=== PATIENT | female | born 1945 | race Caucasian/White ===

== ENCOUNTER → 2024-02-02 15:24 | Outpatient (REF) | payer MEDICARE, SELFPAY | LOC: HWWDC 15:24 | PROVIDERS: ATTENDING PHYSICIAN Nurse Practitioner Family | DX: Z12.31 Encounter for screening mammogram for malignant neoplasm of breast (principal) | CPT/HCPCS: 77063; 77067 ==

== ENCOUNTER 2025-01-23 22:47 | Inpatient (IN) | payer MEDICARE, SELFPAY ==
[2025-01-23 16:40] VITALS: BP 130/71
[2025-01-23 17:09] LABS: Hematocrit 40.0 % (37.0-47.0); Hemoglobin 13.5 g/dL (12.0-16.0); Mean Corp Hgb Conc. 33.8 g/dL (33.0-37.0); Mean Corpuscular Volume 94.3 fL (81.0-99.0); Nucleated Red Blood Cells % 0 %; Platelet Count 293 10^3/uL (130-400); Red Cell Dist. Width 12.3 % (11.5-14.5)
[2025-01-23 17:32] LABS: ALT (SGPT) 16 U/L (0-35); AST (SGOT) 23 U/L (14-36); Albumin 4.8 g/dl (3.5-5.0); Alkaline Phosphatase 50 U/L (38-126); Blood Urea Nitrogen 61 mg/dl (7-17); Calcium 11.4 mg/dl (8.4-10.2); Carbon Dioxide 30 mmol/L (22-30); Chloride 93 mmol/L (98-107); Glucose 189 mg/dl (70-99); Lipase 128 U/L (23-300); Potassium 4.8 mmol/L (3.5-5.1); Sodium 133 mmol/L (135-145); Total Protein 7.7 g/dl (6.3-8.2); eGFR 17.51
--- NOTE | 2025-01-23 19:17 | ED.GENMED ---
History of Present Illness
General
Chief Complaint: Abdominal Pain
Source: patient
Time Seen by Provider: 01/23/25 18:57
History of Present Illness
History of Present Illness:
79-year-old female presents emergency room complaining of abdominal pain. Pain located right lower quadrant today. Patient noted she was having some right-sided back discomfort yesterday. She has some nausea but no vomiting or diarrhea. She is
feeling dizzy when she stands up as well. No fever or chills. Pain actually has improved while waiting in the waiting room. She really does not have pain at the time my evaluation. She is tolerating oral intake. Previous abdominal surgery
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
Past History
Past History
ED Past Medical History: Asthma, GERD, HTN, Hypothyroidism and Other (Crohn's, arthritis)
ED Past Surgical History: None
Social History
Tobacco: Former smoker
Alcohol: None
Personal:
Living: with family
Employment: Retired
Family History
Family History: Other (Unremarkable)
Phy Exam
Physical Exam
Physical Exam:
General: Awake, Alert, Oriented X3. No acute distress.
Vitals: unremarkable
Head: Atraumatic
Eyes: Pupils equal, EOMI
Throat: Airway intact, no exudates
Neck: Trachea midline
Lungs: Clear and equal b/l
Heart: Regular rate, no murmurs
Abd: Soft, no significant tenderness to palpation, colostomy noted, No pulsatile mass
Back: Mild tenderness palpation bilateral CVA
Neuro: Nonfocal
Skin: Warm, dry, no rash
Extremities: pulses equal b/l, no edema
Course
Orders/Labs/Results
Orders:
Orders
01/23/25 17:04
Complete Blood Count/With Diff Urgent
Comprehensive Metabolic Panel Urgent
Lipase Urgent
01/23/25 19:16
CT Abd/pel Without Iv Or Oral Urgent
Comment:
Reason For Exam: r flank/abd pain, abn renal fx
0.9% Sodium Chloride 1000 ml [Nss] 1,000 ml IV BOLUS
01/23/25 19:19
Urinalysis Reflex To Culture Urgent
Date Specimen was Collected: 01/23/25
Time Specimen was Collected: 16:44
Urine Microscopic Reflex Cult Urgent
Urine Culture Urgent
ROMAIN Source: U
Specimen Description:
Date Specimen was Collected: 01/23/25
Time Specimen was Collected: 16:44
01/23/25 22:00
0.9% Sodium Chloride 1000 ml [Nss] 1,000 ml IV 150 mls/hr
01/23/25 22:28
Admit/Transfer Patient As Directed
Co-Sign Provider:
Level of Care: Inpatient admission
Assign to:: Medical/Surgical
Physician / Group: Jay
Diagnosis: PUMA
Reason for Hospitalization: PUMA
Expected length of stay greater than two midnights?: Yes
ELOS- Estimated Length of Stay in days: 2
I certify the patient meets the requirements for IP care: Yes
PRN Pain Medication Management As Directed
May give lesser potent ordered pain med per pt: Yes
preference::
Protocol:: Medication orders for pain may be administered in a
manner that supports deferring to patient preference
when the pt is:
- Requesting an ordered lesser potent pain medication.
Least to most potent pain medications are defined
as: acetaminophen < NSAID < tramadol < opioids
(morphine, oxycodone, hydromorphone).
- Requesting a lesser dose of the same medication IF
ORDERED.
- Requesting a less intrusive route of administration
if both routes are prescribed by the provider (PO <
IV).
01/23/25 22:29
Code Status As Directed
Resuscitation Status: Full Code
Abnormal Lab Results
01/23/25 01/23/25
17:04 19:19
WBC 12.0 H 10^3/uL
(4.8-10.8)
MCH 31.8 H pg
(27.0-31.0)
Absolute Neuts (auto) 7.3 H 10^3/uL
(1.4-6.5)
Absolute Monos (auto) 0.8 H 10^3/uL
(0.1-0.6)
Absolute Eos (auto) 1.6 H 10^3/uL
(0-0.7)
Lymphocytes % 18.8 L %
(20.5-51.1)
Eosinophils % 13.6 H %
(0-6)
Sodium 133 L mmol/L
(135-145)
Chloride 93 L mmol/L
(98-107)
BUN 61 H mg/dl
(7-17)
Creatinine 2.7 H mg/dL
(0.6-1.0)
Glucose 189 H mg/dl
(70-99)
Calcium 11.4 H mg/dl
(8.4-10.2)
Leukocyte Esterase Rfl 1+ A
(Negative)
Urine Albumin (Reflex) 2+ A
(Neg - Trace)
01/23/25 17:04
01/23/25 17:04
Vital Signs
Initial and Last Documented VS:
Initial Vital Signs
Temp Pulse Resp BP Pulse Ox
97.5 F 91 16 130/71 96
01/23/25 16:40 01/23/25 16:40 01/23/25 16:40 01/23/25 16:40 01/23/25 16:40
Last Documented Vital Signs
Temp Pulse Resp BP Pulse Ox
97.5 F 91 16 133/56 97
01/23/25 16:40 01/23/25 16:40 01/23/25 16:40 01/23/25 22:48 01/23/25 22:48
MDM/Problems Addressed
Differential Diagnosis Includes:
Kidney stone, Saul nephritis, muscle strain
MDM/Problems Addressed:
Patient presents with low back pain that radiates to the abdomen. She has had some nausea but has been tolerating oral intake today. Pains actually improved at the time my evaluation. Labs showed significant elevation of BUN and creatinine. She
had outpatient labs just a week ago which were at her baseline which is a BUN of 28 and creatinine 1.3. Patient received an liter of IV normal saline here. She feels a bit better but not back to baseline. She continues to be pain-free.
Urinalysis not consistent with a urinary tract infection. There is no hematuria. Patient will require hospitalization for further evaluation of acute renal failure.
Chronic conditions affecting care: HTN
*Radiology
Radiology exam reviewed: radiology read reviewed
*Pulse Oximetry
SaO2: 96
Oxygen Mode of Delivery: Room air
Patient hypoxic: no
*Critical Care Note
Total Time (30-74mins, 75-104mins- exclusive of procedures): Not Applicable
ED Attending Note
-
Portions of this chart may have been created with voice recognition software.� Occasional wrong word or��sound alike� substitutions may have occurred due to the inherent limitations of voice recognition software.
Discharge Plan
Departure
Patient Disposition: Admit
Date of Disposition: 01/23/25
Time of Disposition: 22:07
Admit to: Med/Surg
Presentation/result/management discussed w/ accepting MD/DO: Hospitalist
Condition: Fair
Discharge Problem:
Acute renal failure (ARF)
Interventions
Interventions:
*Risk Screen - Suicide Last Done: 01/23/25 16:40
*General Assessment Last Done: 01/23/25 19:17
*Neglect/Abuse Screening Last Done: 01/23/25 16:40
*ED- Fall Risk Assessment Last Done: 01/23/25 16:40
*ED COVID-19 Vaccine History Last Done: 01/23/25 19:19
YH-Fqycii-Oigzptvivq Assessment Last Done: 01/23/25 19:16
[2025-01-23 19:18] VITALS: BMI 21.4
[2025-01-23] MEDS: NSS 1000 IV ×2 (19:28→22:02)
[2025-01-23 19:30] VITALS: BP 134/70
[2025-01-23 20:00] VITALS: BP 134/95
[2025-01-23 20:44] LABS: Urine Character Clear (Clear)
[2025-01-23 20:53] LABS: Urine Red Blood Cell 0-2 /HPF (0-2); Urine Squamous Cell 0-2 /LPF (Few); Urine White Cell 0-2 /HPF (0-5)
[2025-01-23 21:00] VITALS: BP 129/61
--- NOTE | 2025-01-23 22:37 | HPS.HSE ---
Family Physician
-
Family Physician: DENNIS Schaffer
Chief Complaint
-
Back pain / Abdominal pain
History of Present Illness
Patient is a 79y F with PMH significant for Crohn's disease s/p colectomy who presents to ED complaining of back pain and abdominal pain. Patient states that she developed R lower back pain and 'spasms' yesterday. This pain progressed to
include the L lower back as well. Today she noted pain in the RLQ of the abdomen. No N/V. No change in ostomy output volume, consistency, etc. Patient states that she felt somewhat lightheaded / dizzy. She denies any recent fall. No change in
activity level, heavy lifting or other obvious injury. She took two ibuprofen yesterday for her back pain - but does not take NSAIDs daily / regularly.
She denies any new medications - including any new OTC supplements, etc.
On evaluation in the ED patient is noted to have PUMA, hypercalcemia, etc. Her pain symptoms have actually improved / resolved since her arrival in the ED.
Medical History
Past Medical History
Past Medical History: Reports Other
Additional Past Medical History:
Crohn's Disease
Anxiety / Depression
Thyroid Disease (no longer on T4 supplementation)
Past Surgical History: Reports Other
Additional Past Surgical History:
Total Colectomy / Ileostomy
T&A
Bilateral TKA
D&C
Social History
Tobacco: Non-smoker
Alcohol: None
Drug: None
Family History
Family History: Not pertinent
Allergies / Home Medications
Allergies reflects when Allergies were last updated in [facility].
Home Medications with original date entered in [facility]
Allergy/Medication List:
Allergies
Allergy/AdvReac Type Severity Reaction Status Date / Time
gabapentin Allergy double Verified 01/23/25 16:43
vision
infliximab (From Remicade) Allergy hypotensive Verified 01/23/25 16:43
Penicillins Allergy Unknown Verified 01/23/25 16:43
Home Medications
venlafaxine 75 mg capsule,extended release 24 hr 75 mg PO DAILY Mental Health/Anxiety 01/30/18
L.acidoph,paracasei,B.animalis 10 billion cell capsule 1 cap PO DAILY Gastrointestinal issue 07/14/18
calcium 500 mg-vitamin D3 200 unit-vitamin K 40 mcg tablet 2 tab PO DAILY Supplement 07/14/18
Iron 27mg 27 mg PO DAILY Supplement 09/11/18
biotin 5 mg capsule 5 mg PO DAILY Supplement 09/11/18
acetaminophen 325 mg tablet 650 mg (2 x 325 mg) PO Q6HPRN PRN mild pain/ fever>100.5F 11/11/18
calcium carbonate (Antacid (calcium carbonate)) 1 tab PO Q6HPRN PRN indigestion 11/11/18
ascorbic acid (vitamin C) 500 mg tablet (Vitamin C) 500 mg PO DAILY 01/23/25
famotidine 20 mg tablet 20 mg PO DAILY 01/23/25
multivitamin 1 tab PO DAILY 01/23/25
vitamins A,C,S-vpgi-ycmlyp 2,148 mcg-113 mg-45 mg-17.4 mg tablet (PreserVision AREDS) 1 tab PO BID 01/23/25
Review of Systems
-
History Source: Patient
A 12 point ROS was completed and negative except as noted: Yes
Constitutional: Reports Fatigue; Denies Fever or Chills
EENT: Denies Sore Throat
Respiratory: Denies Cough or Trouble Breathing
Cardiac: Denies Chest Pain or Palpitations
Abdomen/GI: Reports Abdominal Pain; Denies Nausea, Vomiting, Bloody Stools, Black Stools or Anorexia
: Reports Flank Pain; Denies Dysuria or Frequency
Musculoskeletal: Denies Edema
Neurological: Reports Dizzy; Denies Headache
Physical Exam
Vital Signs
Vital Signs
Temp Pulse Resp BP Pulse Ox
97.5 F 91 16 129/61 98
01/23/25 16:40 01/23/25 16:40 01/23/25 16:40 01/23/25 21:00 01/23/25 21:30
Physical Exam
General: Other (79y F in no distress.)
HEENT: Moist mucous membranes and PERRLA
Respiratory: Clear; No Wheezes, Rales or Rhonchi
Cardiac: S1/S2 and Regular Rhythm; No Murmur
GI: Soft, Non Tender, Non Distended, Normal Bowel Sounds and Other (RLQ ostomy in place with opaque collection device.)
Musculoskeletal: No Clubbing, No Cyanosis and No Edema
Neuro: AO x 3
Laboratory Results
-
01/23/25 17:04
01/23/25 17:04
Laboratory Results
Total Bilirubin 0.5 mg/dl (0.2-1.3) 01/23/25 17:04
AST 23 U/L (14-36) 01/23/25 17:04
ALT 16 U/L (0-35) 01/23/25 17:04
Alkaline Phosphatase 50 U/L (38-126) 01/23/25 17:04
Lipase 128 U/L (23-300) 01/23/25 17:04
Impression/Plan
-
A/P: Patient is a 79y F with PMH significant for Crohn's disease s/p colectomy who presents to ED complaining of back pain / abdominal pain and is noted to have PUMA on labs.
PUMA on CKD III
Hypercalcemia
- Admit for further evaluation and treatment.
- SCr = 2.7 compared to prior baseline of 1.3.
- Also with noted hypercalcemia.
- No significant volume losses of note according to patient.
- IVFs overnight and follow for improvement.
- Check iPTH. Consider dose of Pamidronate / similar if calcium not improved with volume alone.
- Nephrology consulted for additional recommendations.
- CT done in the ED this evening with no anatomic abnormalities, obstruction, etc.
- Avoid nephrotoxic agents, hypotension, etc.
Peripheral Eosinophilia
- AEC = 1600. Afebrile and not toxic appearing.
- No specific / focal symptoms including cutaneous, pulmonary, GI, etc.
- Check urine eosinophils given PUMA.
- Follow temperature curve and monitor for any new symptoms.
- Follow CBC / diff for any changes.
- Consider Hematology evaluation if persistent eosinophilia without evident etiology.
Back Pain
- Improved from initial presentation.
- Unclear etiology without apparent injury, stress, etc.
- Heat application PRN. Follow for any recurrent symptoms.
History of Thyroid Disease
- Patient previously on T4 supplementation but notes that she has been off of this for years.
- Update TFTs.
DVT Prophylaxis: Subcut Heparin
Code Status: Full
[2025-01-23 22:48] VITALS: BP 133/56
[2025-01-23 23:39] VITALS: BP 148/68; BMI 22.0
[2025-01-24] MEDS: NSS 1000 IV ×5 (00:25→23:23)
[2025-01-24 01:42] LABS: Calcium 10.1 mg/dl (8.4-10.2)
[2025-01-24 07:46] LABS: Body Fluid for Eosinophils No Eosinophils seen
[2025-01-24 07:59] LABS: Hematocrit 33.0 % (37.0-47.0); Hemoglobin 10.8 g/dL (12.0-16.0); Mean Corp Hgb Conc. 32.7 g/dL (33.0-37.0); Mean Corpuscular Volume 96.5 fL (81.0-99.0); Nucleated Red Blood Cells % 0 %; Platelet Count 232 10^3/uL (130-400); Red Cell Dist. Width 12.4 % (11.5-14.5)
[2025-01-24 08:00] VITALS: BP 109/60
[2025-01-24] MEDS: EFFEXOR XR 75 MG PO (08:34)
[2025-01-24] MEDS: HEPARIN 5000 UNITS SC ×2 (08:34→20:42)
[2025-01-24 08:35] LABS: ALT (SGPT) 11 U/L (0-35); AST (SGOT) 18 U/L (14-36); Albumin 3.4 g/dl (3.5-5.0); Alkaline Phosphatase 39 U/L (38-126); Blood Urea Nitrogen 42 mg/dl (7-17); Calcium 9.1 mg/dl (8.4-10.2); Carbon Dioxide 29 mmol/L (22-30); Chloride 105 mmol/L (98-107); Estimated Creatinine Clearance 18 ml/min; Glucose 97 mg/dl (70-99); Potassium 4.7 mmol/L (3.5-5.1); Sodium 138 mmol/L (135-145); Total Protein 5.5 g/dl (6.3-8.2); eGFR 26.69
--- NOTE | 2025-01-24 14:02 | W.PN.HOSP.TC ---
Today's Communication/Plan
-
PUMA improving
Nephrology consult
IV fluid
Assessment / Plan
Assessment / Plan
A/P: Patient is a 79y F with PMH significant for Crohn's disease s/p colectomy who presents to ED complaining of back pain / abdominal pain and is noted to have PUMA on labs.
PUMA on CKD III
SCr = 2.7 compared to prior baseline of 1.3, improved to 1.9 after IV fluid
UA with 2+ albumin and 1+ LE
Noncon CT unremarkable
No significant volume losses of note according to patient. She reports drinking well
Continue with IV fluid
Nephrology consulted for further assessment - recommending another day of IVF
Hypercalcemia
Resolved with IV fluid
- Check iPTH�pending.
- Nephrology consulted for additional recommendations.
- CT done in the ED this evening with no anatomic abnormalities, obstruction, etc.
- Avoid nephrotoxic agents, hypotension, etc.
Peripheral Eosinophilia
- AEC = 1600. Afebrile and not toxic appearing.
- No specific / focal symptoms including cutaneous, pulmonary, GI, etc.
- No urine eosinophils
- Follow temperature curve and monitor for any new symptoms.
- Follow CBC / diff for any changes.
- Consider Hematology evaluation if persistent eosinophilia without evident etiology.
Back Pain
- Resolved from initial presentation.
- Unclear etiology without apparent injury, stress, etc.
- Heat application PRN. Follow for any recurrent symptoms.
History of Thyroid Disease
- Patient previously on T4 supplementation but notes that she has been off of this for years. She says she spoke to her PCP who has resumed it
TSH 0.29 but T4 also low at 0.71
Start Synthroid 50 mcg
DVT Prophylaxis: Subcut Heparin
Code Status: Full
Anticipated Discharge: 24 - 48 hours
Subjective/Interval History
-
Date of Service: January 24, 2025
Patient feeling well, denies any back pain or any other issues overnight. [id number] at bedside
Objective Data
-
Labs:
Laboratory Results
01/24/25
06:34
WBC 9.8
Hgb 10.8 L
Hct 33.0 L
Plt Count 232 D
Sodium 138
Potassium 4.7
Chloride 105
Carbon Dioxide 29
BUN 42 H
Creatinine 1.9 H
Glucose 97
Calcium 9.1
Total Bilirubin 0.4
AST 18
ALT 11
Alkaline Phosphatase 39
Vital Signs:
Vital Signs
Temp Pulse Resp BP Pulse Ox
97.9 F 69 18 109/60 96
01/24/25 08:00 01/24/25 08:00 01/24/25 08:00 01/24/25 08:00 01/24/25 08:00
I&O
01/23/25 01/24/25 01/25/25
06:59 06:59 06:59
Intake Total 1050 / 1050
Balance 1050 / 1050
Review of Systems
-
All other systems: Reviewed and negative
Physical Exam
-
General: No Apparent Distress
HEENT: Moist Mucous Membranes, Anicteric and PERRLA
Respiratory: Clear to Auscultation; Negative Wheezes, Rales or Rhonchi
Cardiac: Regular Rhythm and S1/S2; Negative Murmur, Rub or Gallop
GI: Soft, Nontender, Nondistended and Normal Bowel Sounds
Musculoskeletal: No Edema
Skin: Warm and Dry; Negative Rash, Ulcers or Lesions
Neuro: Awake and AO x 3
Hematologic / Lymphatic: No Lymphadenopathy
Psych: Calm
Data Reviewed
-
CT Scan: Report Reviewed by me and Discussed with Patient
Labs: Labs Reviewed by me, Discussed with Physician, Discussed with Patient and Discussed with Family
--- NOTE | 2025-01-24 15:04 | CM ---
Alert awake oriented patient who lives alone in a 1 condo with 0 steps to enter.She is independent in activates of daily living.She does drive .She uses no adaptive devices. Offered Vn she declined n3eed.
[facility]j VN in past . No SNF hx
Pharmacy [facility]
PCP Dr Petersen
PLAN Home with Tej needs referrla
--- NOTE | 2025-01-24 15:22 | W.CON.NEPH ---
Consultation
-
Date/Time Consultation Requested: 01/24/2025 7 AM
Date/Time Consultation Performed: 01/16/2025 9 AM
Requesting Provider: Dr. Thompson
Performing Provider: Dr. Siegel
Reason for Consultation: PUMA
Medical History
-
Chief Complaint: PUMA
History of Present Illness:
This is a 79-year-old female who has Crohn's disease with prior colectomy and ostomy. By her report she has had no issues with her ostomy output over time. She has some reflux on Pepcid. She also has mild anxiety treated with venlafaxine. These
issues are stable overall. She said that she had developed right lower side pain yesterday morning which she describes as sharp spasms. This did progress into her back. She also developed upper back pain as well. She had taken Tylenol and
ibuprofen for her pain which did improve her abdominal issues persisted. She had then come to the emergency room for evaluation. She was noted to have acute kidney injury with a creatinine 2.7. She also had noted hyponatremia and hypercalcemia.
Her pain however has spontaneously improved. She received intravenous fluids. We are asked to assist with management of her PUMA.
Past Medical History
Crohn's Disease
Anxiety / Depression
Thyroid Disease (no longer on T4 supplementation)
Total Colectomy / Ileostomy
T&A
Bilateral TKA
D&C
Social History
Tobacco: Non-Smoker
Alcohol: None
Family History
Family History: Not Pertinent
Allergies / Home Medications
Allergy/AdvReac Type Severity Reaction Status Date / Time
gabapentin Allergy double Verified 01/23/25 16:43
vision
infliximab (From Remicade) Allergy hypotensive Verified 01/23/25 16:43
Penicillins Allergy Unknown Verified 01/23/25 16:43
�Medication �Instructions �Recorded �Confirmed �Type
venlafaxine 75 mg capsule,extended 75 mg PO DAILY Mental 01/30/18 01/23/25 History
release 24 hr Health/Anxiety
L.acidoph,paracasei,B.animalis 10 1 cap PO DAILY Gastrointestinal 07/14/18 01/23/25 History
billion cell capsule issue
calcium 500 mg-vitamin D3 200 2 tab PO DAILY Supplement 07/14/18 01/23/25 History
unit-vitamin K 40 mcg tablet
Iron 27mg 27 mg PO DAILY Supplement 09/11/18 01/23/25 History
biotin 5 mg capsule 5 mg PO DAILY Supplement 09/11/18 01/23/25 History
acetaminophen 325 mg tablet 650 mg (2 x 325 mg) PO Q6HPRN PRN 11/11/18 01/23/25 Rx
mild pain/ fever>100.5F
calcium carbonate (Antacid 1 tab PO Q6HPRN PRN indigestion 11/11/18 01/23/25 Rx
(calcium carbonate))
ascorbic acid (vitamin C) 500 mg 500 mg PO DAILY Supplement 01/23/25 01/23/25 History
tablet (Vitamin C)
famotidine 20 mg tablet 20 mg PO DAILY Gastrointestinal 01/23/25 01/23/25 History
Issue
multivitamin 1 tab PO DAILY 01/23/25 01/23/25 History
vitamins A,C,V-dids-jdhoqx 2,148 1 tab PO BID 01/23/25 01/23/25 History
mcg-113 mg-45 mg-17.4 mg tablet
(PreserVision AREDS)
Review of Systems
-
Pain resolved. She maintains excellent fluid intake, likely close to 100 ounces per day. Mostly this is iced tea but also cranberry juice.
All other systems: Negative unless noted
Physical Exam
Vital Signs
Vital Signs
Temp Pulse Resp BP Pulse Ox
97.9 F 69 18 109/60 96
01/24/25 08:00 01/24/25 08:00 01/24/25 08:00 01/24/25 08:00 01/24/25 08:00
Lab Results
WBC 9.8 10^3/uL (4.8-10.8) 01/24/25 06:34
RBC 3.42 10^6/uL (4.20-5.40) L 01/24/25 06:34
Hgb 10.8 g/dL (12.0-16.0) L 01/24/25 06:34
Hct 33.0 % (37.0-47.0) L 01/24/25 06:34
Plt Count 232 10^3/uL (130-400) D 01/24/25 06:34
Sodium 138 mmol/L (135-145) 01/24/25 06:34
Potassium 4.7 mmol/L (3.5-5.1) 01/24/25 06:34
Chloride 105 mmol/L (98-107) 01/24/25 06:34
Carbon Dioxide 29 mmol/L (22-30) 01/24/25 06:34
BUN 42 mg/dl (7-17) H 01/24/25 06:34
Creatinine 1.9 mg/dL (0.6-1.0) H 01/24/25 06:34
eGFR 26.69 01/24/25 06:34
Glucose 97 mg/dl (70-99) 01/24/25 06:34
Calcium 9.1 mg/dl (8.4-10.2) 01/24/25 06:34
Albumin 3.4 g/dl (3.5-5.0) L 01/24/25 06:34
Laboratory Tests
11/25/22 01/23/25
11:24 17:04
Sodium 133 L
Creatinine 1.3 H 2.7 H
[address]cium 11[address] abdomen pelvis without contrast 01/23/2025
IMPRESSION:
1. No significant acute abnormality identified in the abdomen or pelvis, within the limits of unenhanced CT, as described above.
Physical Exam
Patient is awake alert oriented and in no distress. Mood and affect were pleasant, insight and judgment were good. Pupils are equal round and reactive to light, extraocular movements are intact, sclera were anicteric. Hearing was normal, ears and
nose are intact. Oropharynx was clear. Neck was supple with trachea midline and no thyromegaly. Heart was regular rate and rhythm without rubs. Lower extremities without edema. Lungs were clear to auscultation bilaterally and with normal
excursion. Abdomen was soft, nontender, with normal active bowel sounds, and no hepatosplenomegaly. Skin was without rash and with normal turgor.
Data Reviewed
-
CT Scan: Report Reviewed by me
Labs: Labs Reviewed by me
Old Records: Reviewed
Assessment/Plan
-
Assessment
Crohn's
Ostomy
PUMA
Hyponatremia
Hypercalcemia
Back pain
Plan
continue IV fluids
Follow BMP
She denies any change in her oral intake I suspect that there may have been some change given her electrolyte and renal abnormalities.
Is also possible that she may have passed a kidney stone.
[2025-01-24 16:22] VITALS: BP 117/54
[2025-01-24 23:09] VITALS: BP 126/65
[2025-01-25] MEDS: TYLENOL 650 MG PO (02:08)
[2025-01-25] MEDS: SYNTHROID 50 MCG PO (05:56)
[2025-01-25] MEDS: NSS 1000 IV (05:56)
[2025-01-25 06:00] VITALS: BMI 23.1
[2025-01-25 07:30] VITALS: BP 132/63
[2025-01-25 07:56] LABS: Blood Urea Nitrogen 23 mg/dl (7-17); Calcium 7.7 mg/dl (8.4-10.2); Carbon Dioxide 23 mmol/L (22-30); Chloride 112 mmol/L (98-107); Estimated Creatinine Clearance 32 ml/min; Glucose 89 mg/dl (70-99); Potassium 4.3 mmol/L (3.5-5.1); Sodium 138 mmol/L (135-145); eGFR 51.43
[2025-01-25 08:14] LABS: Hematocrit 29.1 % (37.0-47.0); Hemoglobin 9.3 g/dL (12.0-16.0); Mean Corp Hgb Conc. 32.0 g/dL (33.0-37.0); Mean Corpuscular Volume 98.3 fL (81.0-99.0); Nucleated Red Blood Cells % 0 %; Platelet Count 181 10^3/uL (130-400); Red Cell Dist. Width 12.6 % (11.5-14.5)
[2025-01-25] MEDS: EFFEXOR XR 75 MG PO (09:32)
[2025-01-25] MEDS: HEPARIN 5000 UNITS SC (09:33)
--- NOTE | 2025-01-25 09:34 | W.PN.HOSP.TC ---
Today's Communication/Plan
-
Stable for discharge home today
Assessment / Plan
Assessment / Plan
A/P: Patient is a 79y F with PMH significant for Crohn's disease s/p colectomy who presents to ED complaining of back pain / abdominal pain and is noted to have PUMA on labs.
PUMA on CKD III
SCr = 2.7 compared to prior baseline of 1.3, improved to 1.1 after IV fluids
UA with 2+ albumin and 1+ LE
Noncon CT unremarkable
No significant volume losses of note according to patient. She reports drinking well
Nephrology suspects passed kidney stone, stable for discharge today
Hypercalcemia
Resolved with IV fluid
- Check iPTH�pending.
- CT done in the ED this evening with no anatomic abnormalities, obstruction, etc.
Peripheral Eosinophilia
- AEC = 1600. Afebrile and not toxic appearing.
- No specific / focal symptoms including cutaneous, pulmonary, GI, etc.
- No urine eosinophils
Back Pain
- Resolved from initial presentation.
- Unclear etiology without apparent injury, stress, etc.
- Heat application PRN. Follow for any recurrent symptoms.
History of Thyroid Disease
- Patient previously on T4 supplementation but notes that she has been off of this for years. She says she spoke to her PCP who has resumed it
TSH 0.29 but T4 also low at 0.71
Start Synthroid 50 mcg
DVT Prophylaxis: Subcut Heparin
Code Status: Full
Physical Exam
General: No acute distress
HEENT: Normocephalic, Atraumatic, EOMI, MMM
Respiratory: Clear to Auscultation bilaterally
Cardiac: Normal S1/S2, Regular Rate and Rhythm
GI: Soft, Nontender, Nondistended, Normal Bowel Sounds
Extremities: No Clubbing, Cyanosis, or Edema
Neuro: Nonfocal/Grossly Intact
Anticipated Discharge: Today
Subjective/Interval History
-
Date of Service: January 25, 2025
Patient denies chest pain, denies shortness of breath. No nausea, no vomiting. No fever.
Objective Data
-
Labs:
Laboratory Results
01/25/25
06:38
WBC 8.1
Hgb 9.3 L
Hct 29.1 L
Plt Count 181 D
Sodium 138
Potassium 4.3
Chloride 112 H
Carbon Dioxide 23
BUN 23 H
Creatinine 1.1 H
Glucose 89
Calcium 7.7 L
Vital Signs:
Vital Signs
Temp Pulse Resp BP Pulse Ox
97.4 F 72 16 132/63 96
01/25/25 07:30 01/25/25 07:30 01/25/25 07:30 01/25/25 07:30 01/25/25 07:30
I&O
01/24/25 01/25/25 01/26/25
06:59 06:59 06:59
Intake Total 1050 / 1050 2760 / 2760
Output Total 1700 / 1700
Balance 1050 / 1050 1060 / 1060
[2025-01-25 12:00] VITALS: BP 124/68
--- NOTE | 2025-01-25 12:41 | W.PN.NEPH.PH ---
Today's Communication / Plan
-
cap IVF
Assessment/Plan
-
Assessment
Crohn's
Ostomy
PUMA
Hyponatremia
Hypercalcemia
Back pain
Plan
cap IV fluids
I suspect that she may have passed a kidney stone.
will sign off
-
-
Date of Service: January 25, 2025
CC / HPI / ROS
-
Chief Complaint:
PUMA
History of Present Illness:
PUMA/Cr normal
BP stable
Na normal
Review of Systems:
no CP/SOB
Labs
-
Labs:
WBC 8.1 10^3/uL (4.8-10.8) 01/25/25 06:38
RBC 2.96 10^6/uL (4.20-5.40) L 01/25/25 06:38
Hgb 9.3 g/dL (12.0-16.0) L 01/25/25 06:38
Hct 29.1 % (37.0-47.0) L 01/25/25 06:38
Plt Count 181 10^3/uL (130-400) D 01/25/25 06:38
Sodium 138 mmol/L (135-145) 01/25/25 06:38
Potassium 4.3 mmol/L (3.5-5.1) 01/25/25 06:38
Chloride 112 mmol/L (98-107) H 01/25/25 06:38
Carbon Dioxide 23 mmol/L (22-30) 01/25/25 06:38
BUN 23 mg/dl (7-17) H 01/25/25 06:38
Creatinine 1.1 mg/dL (0.6-1.0) H 01/25/25 06:38
eGFR 51.43 01/25/25 06:38
Glucose 89 mg/dl (70-99) 01/25/25 06:38
Calcium 7.7 mg/dl (8.4-10.2) L 01/25/25 06:38
Albumin 3.4 g/dl (3.5-5.0) L 01/24/25 06:34
Physical Exam
-
Vital Signs:
Vital Signs
Temp Pulse Resp BP Pulse Ox
97.4 F 72 16 132/63 96
01/25/25 07:30 01/25/25 07:30 01/25/25 07:30 01/25/25 07:30 01/25/25 07:30
Cardiovascular:: Regular rate and rhythm
Respiratory:: Bilateral: CTA
Lung Excursion:: Normal
Abdomen:: Nontender and Soft
Bowel Sounds:: Normal
Extremity Edema:: None: Bilateral:
--- NOTE | 2025-01-25 12:46 | W.DCSUMMARY ---
Discharge Summary
Discharge Data
Date of Admission: 01/23/25
Date of Discharge: 01/25/25
-
Pending Results: No
Hospital Course
Discharge diagnosis:
Acute kidney injury superimposed on stage III chronic kidney disease
Back pain, likely from past kidney stone
Hypercalcemia
Peripheral eosinophilia
History of thyroid disease
Consults: Nephrology
CT abd/pelvis:
Evaluation is limited by lack of intravenous contrast.
Visualized portion of the lung bases demonstrate mild bilateral subpleural fibrotic change and atelectasis.
The liver, spleen, kidneys, adrenal glands and pancreas are unremarkable. Gallbladder present.
No abdominal aortic aneurysm.
No enlarged lymph nodes, free fluid, or free air. Colectomy change with right lower quadrant ostomy, without overt complication. The bowel is without evidence of obstruction or adjacent inflammatory changes.
Bladder unremarkable.
Hysterectomy change with probable chronic presacral scarring.
No suspicious osseous lesions.
Hospital course:
79-year-old female with a past medical history of thyroid disease and stage III chronic kidney disease was admitted for acute kidney injury and back pain. She was seen in conjunction with nephrology, and treated with IV fluids. Her back pain
resolved. Nephrology suspects a passed kidney stone. Patient's creatinine normalized.
Patient was noted to have hypercalcemia upon admission. This resolved with IV fluids.
She also has a history of thyroid disease. TSH was 0.29, T4 also low at 0.71. Her PCP recently resumed her Synthroid. She is discharged on Synthroid 50 mcg daily.
Patient is medically stable for discharge. She needs to follow-up with her PCP in 1 week.
Disposition: Home self-care
Discharge planning: Required 33 minutes
Discharge Plan
-
Patient Disposition: Home (Routine Discharge)
Discharge Diagnosis/Procedures: Acute kidney injury, suspected passed kidney stone
Condition: Good
Diet: Regular
Activity: As tolerated
Driving Restrictions: As prior to admission
Referrals:
Adelaida Petersen CRNP [Family Provider, [facility]] - in one week
Prescriptions:
New
levothyroxine 50 mcg capsule
50 mcg PO DAILY Qty: 30 0RF
Rx Instructions:
Take on an empty stomach
Continued
venlafaxine 75 MG capsule,extended release 24hr
75 mg PO DAILY
calcium-vitamin D3-vitamin K 1 EACH tablet
2 tab PO DAILY
L.acidoph,paracasei,B.animalis 1 EACH capsule
1 cap PO DAILY
biotin 5 MG capsule
5 mg PO DAILY
Iron 27mg
27 mg PO DAILY
acetaminophen 325 MG tablet
650 mg PO Q6HPRN PRN (Reason: mild pain/ fever>100.5F) 0RF
calcium carbonate [Antacid (calcium carbonate)] 1 TABLET tablet,chewable
1 tab PO Q6HPRN PRN (Reason: indigestion) 0RF
multivitamin Tablet
1 tab PO DAILY
PreserVision AREDS 2,148 mcg-113 mg-45 mg-17.4mg Tablet
1 tab PO BID
famotidine 20 MG tablet
20 mg PO DAILY
ascorbic acid (vitamin C) [Vitamin C] 500 MG tablet
500 mg PO DAILY
Discharge Orders:
Discharge Patient (As Directed); Ordered 01/25/25
Ordered By: Hung Keene
Discharge Date and Time
Discharge Date/Time: 01/25/25 15:04
Print Language: [place]
--- NOTE | 2025-01-25 14:01 | CM ---
Patient medically cleared for discharge. Spoke with patient who confirmed ride home and signed IMM. It is now on chart. Clinical sent to [facility]. Patient unsure of whether she wanted their services and will speak with them when she returns home.
Plan: Case management will continue to follow and assist with discharge planning. Home with VN.
== END 2025-01-25 15:04 | disposition home health service (06) | DRG 683 ==
LOC: 4 EAST ACU 22:47
PROVIDERS: Emergency Medicine; Internal Medicine; ADMITTING PHYSICIAN Hospitalist; ATTENDING PHYSICIAN Family Medicine; EMERGENCY PHYSICIAN Emergency Medicine; FAMILY PHYSICIAN Nurse Practitioner Family; OTHER PHYSICIAN Specialist
DX: N17.9 Acute kidney failure, unspecified (principal); E87.1 Hypo-osmolality and hyponatremia; N18.30 Chronic kidney disease, stage 3 unspecified; N20.0 Calculus of kidney; I12.9 Hypertensive chronic kidney disease with stage 1 through stage 4 chronic kidney disease, or unspecified chronic kidney disease; F32.A Depression, unspecified; F41.9 Anxiety disorder, unspecified; E03.9 Hypothyroidism, unspecified; E83.52 Hypercalcemia; D72.10 Eosinophilia, unspecified; K21.9 Gastro-esophageal reflux disease without esophagitis; M19.90 Unspecified osteoarthritis, unspecified site; J45.909 Unspecified asthma, uncomplicated; Z87.891 Personal history of nicotine dependence; Z93.3 Colostomy status
CPT/HCPCS: 74176; 80048; 80053; 81003; 81015; 81099; 82248; 82570; 83690; 83970; 84156; 84439; 84443; 85025; 87086; 96360; 99285